=== PATIENT | female | born 1945 | race Caucasian/White ===

== ENCOUNTER 2016-08-20 10:32 | Outpatient (CLI) | payer MEDICARE ==
[2016-08-20 12:36] LABS: #Basophils 0.1 thou/uL (0.0-0.2); #Eosinphils 0.3 thou/uL (0.0-0.7); #Monocytes 0.3 thou/uL (0.11-0.59); %Eosinophils 4.6 % (0.0-10.0); %Lymphocytes 18.3 % (21.0-51.0); %Monocytes 5.4 % (0.0-10.0); %Neutrophils 69.7 % (42.0-75.0); Mean Corpuscular HGB CONC 31.6 g/dL (32.0-36.0); Mean Corpuscular Hemoglobin 29.1 pg (27.0-31.0); Mean Corpuscular Volume 92.2 fl (81.0-99.0); Mean Platelet Volume 7.7 fL (7.4-10.4); Platelet Count 269 thou/uL (130-400); RBC Distribution Width 13.6 % (11.5-14.5); Red Blood Cell (RBC) Count 4.47 mill/uL (4.20-5.40); White Blood Cell (WBC) Count 5.7 thou/uL (4.8-10.8)
[2016-08-20 12:57] LABS: ALT (SGPT) 25 U/L (8-55); AST (SGOT) 25 U/L (5-34); Albumin 4.2 g/dL (3.4-4.8); Alkaline Phosphatase 64 U/L (40-150); Anion Gap 16 mmol/L (10-20); BUN (Urea Nitrogen) 22 mg/dL (9.8-20.1); Bilirubin, Direct 0.3 mg/dL (0.1-0.3); Bilirubin, Total 0.8 mg/dL (0.2-1.2); Calc. Creatinine Clearance 0 mL/min (70-130); Calcium 9.4 mg/dL (7.8-10.44); Carbon Dioxide 26 mmol/L (23-31); Chloride 106 mmol/L (98-107); Cholesterol 153 mg/dl (< 200 Desired); Estimated GFR-MDRD 61; Glucose 102 mg/dL (80-115); HDL Cholesterol 51 mg/dL (>60 Neg Risk); LDL Cholesterol, Calculated 82 mg/dL; Sodium 144 mmol/L (136-145); Triglycerides 100 mg/dL (Less than 150)
== END 2016-08-20 10:33 | disposition home or self-care (01) ==
LOC: NAVSJIPCSP 10:32
PROVIDERS: ATTEND Family Medicine
DX: E78.5 Hyperlipidemia, unspecified (principal); J32.9 Chronic sinusitis, unspecified; I10 Essential (primary) hypertension; Z79.899 Other long term (current) drug therapy
CPT/HCPCS: 36415; 80048; 80061; 80076; 83036; 84443; 85025

== ENCOUNTER 2018-12-02 13:13 | Outpatient (CLI) | payer MEDICARE ==
[2018-12-02 13:36] LABS: #Basophils 0.1 thou/uL (0.0-0.2); #Eosinphils 0.3 thou/uL (0.0-0.7); #Lymphocytes 0.7 thou/uL (1.20-3.40); #Monocytes 0.5 thou/uL (0.11-0.59); #Neutrophils 10.1 thou/uL (1.40-6.50); %Basophils 0.9 % (0.0-1.0); %Eosinophils 2.6 % (0.0-10.0); %Neutrophils 86.5 % (42.0-75.0); Mean Corpuscular HGB CONC 31.2 g/dL (32.0-36.0); Mean Corpuscular Hemoglobin 25.1 pg (27.0-31.0); Mean Corpuscular Volume 80.4 fL (78.0-98.0); Mean Platelet Volume 6.2 fL (7.4-10.4); Platelet Count 454 thou/uL (130-400); RBC Distribution Width 13.5 % (11.5-14.5); Red Blood Cell (RBC) Count 4.38 mill/uL (4.20-5.40); White Blood Cell (WBC) Count 11.7 thou/uL (4.8-10.8)
[2018-12-02 13:38] LABS: Bilirubin Negative (Negative); Blood, Urine Large (Negative); Clarity Slightly Cloudy (Clear); Glucose, Urine (Dipstick) Negative (Negative); Leukocyte Trace (Negative); Nitrite Negative (Negative); Protein, Urine (Dipstick) > or equal to 300 mg/dL (Neg-Trace); Urobilinogen 0.2 mg/dL (Less than 2)
[2018-12-02 13:48] LABS: ALT (SGPT) 14 U/L (8-55); AST (SGOT) 16 U/L (5-34); Albumin 3.5 g/dL (3.4-4.8); Alkaline Phosphatase 87 U/L (40-110); Anion Gap 19 mmol/L (10-20); BUN (Urea Nitrogen) 56 mg/dL (9.8-20.1); Bilirubin, Total 0.6 mg/dL (0.2-1.2); Calc. Creatinine Clearance 0 mL/min (70-130); Calcium 11.4 mg/dL (7.8-10.44); Carbon Dioxide 23 mmol/L (23-31); Chloride 97 mmol/L (98-107); Estimated GFR-MDRD 23; Glucose 166 mg/dL (83-110); Potassium 3.2 mmol/L (3.5-5.1); Protein, Total 6.5 g/dL (6.0-8.3); Sodium 136 mmol/L (136-145)
[2018-12-02 14:06] LABS: Bacteria/HPF 1+ HPF (None Seen)
== END 2018-12-02 13:14 | disposition home or self-care (01) ==
LOC: NAVSJIPCSP 13:13
PROVIDERS: ATTEND Family Medicine
DX: I73.9 Peripheral vascular disease, unspecified (principal); R35.0 Frequency of micturition; G62.9 Polyneuropathy, unspecified; I10 Essential (primary) hypertension; R53.1 Weakness; Z79.899 Other long term (current) drug therapy
CPT/HCPCS: 36415; 80053; 81001; 85025

== ENCOUNTER 2018-12-16 18:47 | Inpatient (IN) | payer MEDICARE ==
[2018-12-16] MEDS ORDERED: Bisacodyl 5 MG TAB PO PRN (19:29)
[2018-12-16] MEDS ORDERED: Ondansetron ODT 4 MG TAB PO PRN (19:35)
[2018-12-16] MEDS ORDERED: Loperamide HCl 2 MG CAP PO PRN (19:35)
[2018-12-16] MEDS: Megestrol Acetate 400 MG/10 ML UDCUP PO SCH (20:13)
[2018-12-16] MEDS: Heparin 5,000 UNITS/ML VIAL SC SCH (20:13)
[2018-12-16] MEDS: Simvastatin 10 MG TAB PO SCH (20:14)
[2018-12-16] MEDS: Mirtazapine 30 MG TAB PO SCH (20:14)
--- NOTE | 2018-12-16 23:22 | HP ---
HISTORY OF PRESENT ILLNESS: Ms. Porras is a very pleasant 73-year-old white female, who over the past few weeks had a significantly mental and physical decline. She was brought to the emergency room, where she was found to be in acute on chronic renal insufficiency along with acute toxic metabolic encephalopathy. She was admitted to the hospital once, treated for several days and now has somewhat improved, but now transferred to [facility] for physical therapy and occupational therapy to increase her strength and stamina. Several medications were changed. The patient was seen by Dr. العراقي/Dr. Hutchinson for her GI symptoms. The patient was seen by Dr. Abdiel Vaz for her acute toxic metabolic encephalopathy. The patient was seen by Dr. Beto Cota for her acute on chronic renal insufficiency. The patient stabilized, now is in [facility] for PT, OT and to hopefully allow her toxic metabolic encephalopathy to clear more. PAST MEDICAL HISTORY: Significant for; 1. Rheumatoid arthritis. 2. Hypertension. 3. Hyperlipidemia. 4. Acute on chronic kidney disease. 5. Vasculitis. 6. Gastric ulcer with GERD. 7. Urinary incontinence. 8. Anemia. 9. Depression. 10. Lumbosacral stenosis. PAST SURGICAL HISTORY: Reveals; 1. In 1980, tubal ligation. 2. In 1987, bilateral carpal tunnel surgery. 3. In 1990, left foot surgery second metatarsal by Dr. Crabtree. 4. In 1999, Dr. Crabtree reoperated on the second metatarsal. 5. In 2004, colonoscopy with polypectomy by Dr. Hutchinson. 6. Back surgery by Dr. Hitchcock in 2004. 7. Right total hip replacement by Dr. Rodrigez in 2005. 8. PICC line in 2015. 9. Cervical neck pain by Dr. Godwin Smith, had laser surgery for scar tissue in 2015. 10. Left lower leg amputation, 12/02/2017. FAMILY HISTORY: Reveals the patient's father at age 78 from prostate cancer. The patient's mother at age 84 from breast cancer and dementia. The patient has a sister with arthritis. The patient's paternal grandmother from atherosclerotic heart disease. The patient's maternal grandmother from colon cancer at young age. SOCIAL HISTORY: Reveals the patient was a smoker, but quit in February 2015. She has a 50+ pack year history of smoking. She presently is retired and lives with her spouse in [place], [place]. She has an occasional alcoholic drink, but rarely now. She has 1 dog. ALLERGIES: SHE HAS NO KNOWN DRUG ALLERGIES. REVIEW OF SYSTEMS: CONSTITUTIONAL: Reveals the patient denies fever, chills, or night sweats. Denies headache, but she does admit to extreme weakness and fatigue. She did hit her head 3 or 4 weeks before she was admitted to the hospital. The patient's family states at that time she started having some mental decline. HEENT: She denies any visual changes or hearing changes. RESPIRATORY: She does admit to rhinorrhea occasionally with some congestion, but no sore throat or hoarseness is noted. The patient is not short of breath, not coughing, has not had a change in her sputum production. CARDIOVASCULAR: The patient has no dyspnea on exertion, chest pain, claudication, or arrhythmias. GI: Reveals the patient has decreased oral intake over the last 2 to 3 weeks. She has not had significant abdominal pain, or dyspepsia. She does admit to some dysphagia at times and does not want to eat and just drinks mostly liquids and Ensure. She has been seen by Dr. Hutchinson and had a scope approximately a week before being admitted to the hospital. She had an EGD, which revealed a small gastric ulcer, was put on PPI b.i.d. : The patient has no significant nocturia, urgency, but she does have incontinence. MUSCULOSKELETAL: The patient has some achiness in all of her muscles, but they are really just very weak. She has difficulty standing or walking and does not care to do so at this time. NEUROLOGIC: She does complain of weakness and has occasional dizziness in the past. She does have a right kcyza-ttk-veqa amputation from vasculitis. PHYSICAL EXAMINATION: GENERAL: This is a well-developed, well-nourished, very pleasant 73-year-old white female, in no apparent distress at this time. HEENT: Normocephalic and nontraumatic cranium. The pupils are equally round and reactive. The extraocular movements are intact. The nose and throat are somewhat dry. NECK: Supple without masses, nodes, or bruits. CHEST: Clear to auscultation. No rales, no rhonchi, no wheezes are heard. HEART: Reveals a regular rate and rhythm without murmurs, gallops, or rubs. ABDOMEN: Soft, nontender without organomegaly. Normal bowel sounds are noted in all 4 quadrants. No masses or distention is noted. : Deferred. EXTREMITIES: Revealed generalized weakness with a left qjiue-rfa-jviy amputation, which is well healed. NEUROLOGIC: The patient is oriented to person, place, but not to time. MUSCULOSKELETAL: The patient has generalized weakness all over, 3/5. The patient has had some recent and remote memory fogginess. ASSESSMENT: 1. Acute encephalopathy, much improved. 2. Acute on chronic kidney disease. 3. Hypertension. 4. Hyperlipidemia. 5. Admission with hypokalemia. 6. 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 7. Chest x-ray, rule out pneumonia, aspiration versus infiltrate versus atelectasis. 8. Recent history of gastric ulcer with gastrointestinal bleed with normocytic anemia. PLAN: 1. The patient has been transferred to [facility] for physical therapy and occupational therapy, and speech therapy. 2. We will continue to treat this patient for her acute toxic encephalopathy. 3. We will continue to follow the patient's blood pressure closely. 4. Continue to follow the patient's renal status and anemia closely. 5. Stress ulcer prophylaxis. 6. Decubitus precautions. 7. Deep venous thrombosis prophylaxis per Primary Service. 8. Physical therapy and occupational therapy. 9. Speech therapy. Job ID: [id number]
[2018-12-17] MEDS: Acetaminophen 325 MG TAB PO PRN ×2 (04:37→17:15)
[2018-12-17 05:53] LABS: #Basophils 0.1 thou/uL (0.0-0.2); #Eosinphils 0.4 thou/uL (0.0-0.7); #Monocytes 0.5 thou/uL (0.11-0.59); #Neutrophils 11.7 thou/uL (1.40-6.50); %Basophils 0.4 % (0.0-1.0); %Eosinophils 2.7 % (0.0-10.0); %Lymphocytes 7.6 % (21.0-51.0); %Monocytes 3.8 % (0.0-10.0); %Neutrophils 85.5 % (42.0-75.0); Hemoglobin 8.4 g/dL (12.0-16.0); Mean Corpuscular Hemoglobin 26.6 pg (27.0-31.0); Mean Corpuscular Volume 80.6 fL (78.0-98.0); Mean Platelet Volume 5.4 fL (7.4-10.4); Platelet Count 341 thou/uL (130-400); RBC Distribution Width 14.8 % (11.5-14.5); Red Blood Cell (RBC) Count 3.14 mill/uL (4.20-5.40); White Blood Cell (WBC) Count 13.7 thou/uL (4.8-10.8)
[2018-12-17 06:16] LABS: ALT (SGPT) 20 U/L (8-55); AST (SGOT) 21 U/L (5-34); Albumin 2.4 g/dL (3.4-4.8); Alkaline Phosphatase 114 U/L (40-110); Anion Gap 13 mmol/L (10-20); BUN (Urea Nitrogen) 36 mg/dL (9.8-20.1); Bilirubin, Total 0.4 mg/dL (0.2-1.2); Calc. Creatinine Clearance 19 mL/min (70-130); Calcium 9.1 mg/dL (7.8-10.44); Carbon Dioxide 26 mmol/L (23-31); Chloride 103 mmol/L (98-107); Estimated GFR-MDRD 18; Glucose 123 mg/dL (83-110); Potassium 4.4 mmol/L (3.5-5.1); Protein, Total 5.4 g/dL (6.0-8.3); Sodium 138 mmol/L (136-145)
[2018-12-17] MEDS: Ferrous Sulfate 325 MG TAB PO SCH ×2 (08:46→17:16)
[2018-12-17] MEDS: Folic Acid 1 MG TAB PO SCH (08:46)
[2018-12-17] MEDS: Megestrol Acetate 400 MG/10 ML UDCUP PO SCH ×2 (08:47→20:45)
[2018-12-17] MEDS: Potassium Chloride 20 MEQ TAB PO SCH ×2 (08:57→17:16)
[2018-12-17] MEDS: Heparin 5,000 UNITS/ML VIAL SC SCH ×2 (08:58→20:45)
[2018-12-17] MEDS ORDERED: (Bisoprolol Fumarate [Zebeta] 10 MG) PO SCH (09:00)
[2018-12-17] MEDS ORDERED: FLU VACC TS2019-20(65YR UP)/PF 180 MCG/0.5 ML SYRINGE IM ONE (09:00)
[2018-12-17] MEDS ORDERED: Prevnar 13-Val Conj/PF 0.5 ML SYRINGE IM ONE (09:00)
[2018-12-17] MEDS: Bisoprolol Fumarate 5 MG TAB PO SCH (10:06)
[2018-12-17 10:24] LABS: Bilirubin Negative (Negative); Blood, Urine Moderate (Negative); Clarity Clear (Clear); Glucose, Urine (Dipstick) Negative (Negative); Leukocyte Negative (Negative); Nitrite Negative (Negative); Protein, Urine (Dipstick) 100 mg/dL (Neg-Trace); Urobilinogen 0.2 mg/dL (Less than 2)
--- NOTE | 2018-12-17 10:27 | PRG ---
DATE OF SERVICE: 12/17/2018 HISTORY: Ms. Porras is a well-developed, well-nourished, very pleasant, 73-year- old white female, who was admitted to [facility] with toxic metabolic encephalopathy. She had an extensive workup, which only revealed acute on chronic renal insufficiency. She had significant decrease in appetite for approximately 3 weeks leading up to this. She is much improved, but she is still only oriented x1 and so she was transferred to inpatient swing bed at [facility] for physical therapy, occupational therapy, and speech therapy. She is also here to see if we get her encephalopathy to continue to clear and to encourage her to drink more liquids and to eat better. The patient was seen by Dr. العراقي/Jasper, Dr. Abdiel Vaz, and Dr. Anthony Cota, all with recommendations. SUBJECTIVE: The patient states she is feeling a bit better today, but she got in late last night and did not want to eat. She does not remember me coming by to see her late last night. She does remember that we talked about her senior hardware design engineer , who also happens to be Dr. Cota from [place]. Her will bring paperwork indicating her diagnosis from him today, which we will review. OBJECTIVE: VITAL SIGNS: Today, reveal blood pressure 156/84, pulse 86 to 91, respirations 18, O2 saturation 93% to 96% on room air, and T-max 99.1. LABORATORY DATA: Today, reveals white count of 13,700 with hemoglobin 8.4 and hematocrit 25.3, which has improved since she did get blood before she left [facility] yesterday. Chemistries today reveal sodium 138, potassium 4.4, chloride 103, carbon dioxide 26 with a BUN of 36 and creatinine 2.63. Sugar this morning is 123. OBJECTIVE: GENERAL: This is a well-developed, well-nourished, slightly overweight white female, oriented to person and place, but not time. HEENT: Reveals normocephalic and nontraumatic cranium. Pupils are equal, round , and reactive. Extraocular movements are intact. Nose and throat are somewhat dry this morning. The patient is encouraged to eat and drink better. NECK: Supple without masses, nodes, or bruits. CHEST: Clear to auscultation. No rales, no rhonchi, no wheezes, and no cough is noted. HEART: Reveals a regular rate and rhythm without murmurs, gallops, or rubs. ABDOMEN: Slightly obese, soft, and nontender without organomegaly. No rebound or guarding is noted. Normal bowel sounds are noted in all 4 quadrants. GENITOURINARY: Exam is deferred. EXTREMITIES: Reveal no clubbing, cyanosis, or edema. Uclpf-wqw-dulv amputation noted on the left. It is well healed. The patient's prosthesis should be coming in within the next allison days. . NEUROLOGIC: The patient is oriented to person and place, but not time today. The patient has generalized weakness all over, it is 3/5. She is a 1-person max assist. She continues to have some recent remote memory fogginess. ASSESSMENT: 1. Acute encephalopathy, slightly improved today. 2. Acute on chronic kidney disease, which is not improving. 3. Hypertension. 4. Hyperlipidemia. 5. Admission for hypokalemia. 6. 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 7. Chest x-ray ruled out pneumonia, aspiration versus infiltrate versus atelectasis. 8. Recent history of gastrointestinal ulcer with minimal bleed. PLAN: 1. The patient is here for occupational therapy, physical therapy, and speech therapy. 2. Continue to treat the patient for acute toxic encephalopathy. 3. Follow the patient's blood pressure closely. 4. Monitor the patient's renal status. Encourage her to eat. 5. Monitor the patient's anemia. 6. Stress ulcer prophylaxis. 7. Decubitus precautions. 8. DVT prophylaxis. 9. Physical therapy and occupational therapy. 10. Speech therapy. Job ID: [id number] [facility]
[2018-12-17 10:30] LABS: Bacteria/HPF None Seen HPF (None Seen); WBC/HPF 0-3 HPF (0-3)
[2018-12-17] MEDS: Simvastatin 10 MG TAB PO SCH (20:45)
[2018-12-17] MEDS: Mirtazapine 30 MG TAB PO SCH (20:45)
[2018-12-18 06:46] LABS: #Basophils 0.2 thou/uL (0.0-0.2); #Eosinphils 0.5 thou/uL (0.0-0.7); #Lymphocytes 0.9 thou/uL (1.20-3.40); #Monocytes 0.7 thou/uL (0.11-0.59); %Basophils 1.1 % (0.0-1.0); %Eosinophils 3.3 % (0.0-10.0); %Lymphocytes 6.4 % (21.0-51.0); %Monocytes 4.6 % (0.0-10.0); %Neutrophils 84.6 % (42.0-75.0); Hemoglobin 8.4 g/dL (12.0-16.0); Mean Corpuscular HGB CONC 32.1 g/dL (32.0-36.0); Mean Corpuscular Volume 81.2 fL (78.0-98.0); Mean Platelet Volume 5.3 fL (7.4-10.4); Platelet Count 361 thou/uL (130-400); RBC Distribution Width 15.3 % (11.5-14.5); Red Blood Cell (RBC) Count 3.23 mill/uL (4.20-5.40); White Blood Cell (WBC) Count 14.1 thou/uL (4.8-10.8)
[2018-12-18 06:58] LABS: Anion Gap 15 mmol/L (10-20); BUN (Urea Nitrogen) 35 mg/dL (9.8-20.1); Calc. Creatinine Clearance 18 mL/min (70-130); Calcium 9.4 mg/dL (7.8-10.44); Carbon Dioxide 20 mmol/L (23-31); Chloride 108 mmol/L (98-107); Estimated GFR-MDRD 16; Glucose 96 mg/dL (83-110); Potassium 5.4 mmol/L (3.5-5.1); Sodium 138 mmol/L (136-145)
[2018-12-18] MEDS: Megestrol Acetate 400 MG/10 ML UDCUP PO SCH ×2 (08:33→21:27)
[2018-12-18] MEDS: Folic Acid 1 MG TAB PO SCH (08:34)
[2018-12-18] MEDS: Ferrous Sulfate 325 MG TAB PO SCH ×2 (08:34→17:01)
[2018-12-18] MEDS: Potassium Chloride 20 MEQ TAB PO SCH ×2 (08:34→17:00)
[2018-12-18] MEDS: Bisoprolol Fumarate 5 MG TAB PO SCH (08:34)
[2018-12-18] MEDS: Heparin 5,000 UNITS/ML VIAL SC SCH ×2 (08:34→21:27)
[2018-12-18] MEDS ORDERED: Amlodipine 5 MG TAB PO SCH (10:15)
[2018-12-18] MEDS ORDERED: Sodium Chloride 0.9% 20 ML ONE (10:32)
[2018-12-18] MEDS: Sodium Chloride 0.9% 1,000 ML IV SCH ×2 (10:36→20:59)
--- NOTE | 2018-12-18 18:34 | PRG ---
DATE OF SERVICE: 12/18/2018 HISTORY: Ms. Porras is a very pleasant 73-year-old white female, presented to [facility] with toxic metabolic encephalopathy and acute on chronic renal insufficiency. Apparently, she has significant decreased appetite for approximately 3 weeks leading up to this. She is not able to eat or drink at all. She was seen by GI, by Neurology, and by Renal consultations. She eventually was stabilized and transferred to inpatient rehab for physical therapy and occupational therapy, and speech therapy. She also has continuing chronic renal insufficiency, unknown etiology. SUBJECTIVE: The patient states she feels much better, and she is much more awake and alert and oriented x2 today. She was talking to several of her friends and her sitter today. She states she is trying to eat better, but I reminded her that her creatinine went from 2.6 to 2.89 today and therefore, we would start her on some IV normal saline along with potassium pill. I encouraged her to try to eat better, so that we do not have to leave that IV in very long. She said "she will try." She was also hypertensive, so we also start her on amlodipine 5 mg q.a.m. and elected to keep her off the lisinopril at this time. OBJECTIVE: VITAL SIGNS: Reveal blood pressure this morning was 179/96, pulse was 87, respirations 18, O2 saturation was 95% on room air, and T-max was 98.2. GENERAL: This is a well-developed, well-nourished, slightly obese white female, in no apparent distress at this time. HEENT: Reveals normocephalic and nontraumatic cranium. Pupils are equal, round, and reactive. Extraocular movements are intact. Nose and throat are slightly dry. NECK: Supple without masses, nodes, or bruits. CHEST: Clear to auscultation. No rales, rhonchi, or wheezes are heard. HEART: Reveals a regular rate and rhythm without murmurs, gallops, or rubs. ABDOMEN: Soft, nontender without organomegaly. Normal bowel sounds are noted. ABDOMEN: Slightly protuberant. GENITOURINARY: Exam is deferred. EXTREMITIES: Reveal no clubbing, cyanosis, or edema. NEUROLOGIC: The patient is oriented to person and place today. She continues to have some generalized weakness. She is still one-person max assist. I did get a call from the physicians at [facility] where she was, and she had an ANCA score that was 180. She also had a positive rheumatoid factor. I did recommend that she return to see her intake assessor for further treatment of her rheumatoid arthritis. ASSESSMENT: 1. Acute encephalopathy, continued to slightly improve. 2. Acute on chronic kidney disease, which is worsened from creatinine of 2.6 to 2.89. 3. Hypertension. 4. Hyperlipidemia. 5. History of rheumatoid vasculitis in the past. 6. Rheumatoid arthritis. 7. Recent gastrointestinal ulcer. Scoped by Dr. Hutchinson. 8. Very poor appetite. 9. Generalized weakness. PLAN: 1. Continue to monitor the patient's acute toxic encephalopathy, which is slowly improving. 2. We will start the patient on amlodipine 5 mg for better blood pressure control. 3. Continue to monitor the patient's renal status. 4. Repeat labs tomorrow. 5. Encourage the patient to eat and drink more. 6. Monitor the patient's anemia. 7. Stress ulcer prophylaxis. 8. Decubitus precautions. 9. DVT prophylaxis. 10. Continue physical therapy and occupational therapy. 11. Speech therapy. Job ID: [id number]
[2018-12-18] MEDS: Mirtazapine 30 MG TAB PO SCH (21:27)
[2018-12-18] MEDS: Simvastatin 10 MG TAB PO SCH (21:27)
[2018-12-19 07:39] LABS: Anion Gap 14 mmol/L (10-20); BUN (Urea Nitrogen) 35 mg/dL (9.8-20.1); Calc. Creatinine Clearance 18 mL/min (70-130); Calcium 9.1 mg/dL (7.8-10.44); Carbon Dioxide 16 mmol/L (23-31); Chloride 112 mmol/L (98-107); Estimated GFR-MDRD 16; Glucose 93 mg/dL (83-110); Potassium 5.4 mmol/L (3.5-5.1); Sodium 137 mmol/L (136-145)
[2018-12-19] MEDS: Ferrous Sulfate 325 MG TAB PO SCH ×2 (08:53→18:06)
[2018-12-19] MEDS: Potassium Chloride 20 MEQ TAB PO SCH ×2 (08:54→18:06)
[2018-12-19] MEDS: Folic Acid 1 MG TAB PO SCH (08:54)
[2018-12-19] MEDS: Amlodipine 5 MG TAB PO SCH (08:55)
[2018-12-19] MEDS: Bisoprolol Fumarate 5 MG TAB PO SCH (08:55)
[2018-12-19] MEDS: Megestrol Acetate 400 MG/10 ML UDCUP PO SCH ×2 (08:55→21:22)
[2018-12-19] MEDS: Heparin 5,000 UNITS/ML VIAL SC SCH ×2 (08:56→21:21)
[2018-12-19] MEDS: Sodium Chloride 0.9% 1,000 ML IV SCH ×3 (13:56→23:02)
[2018-12-19] MEDS: Simvastatin 10 MG TAB PO SCH (21:22)
[2018-12-19] MEDS: Mirtazapine 30 MG TAB PO SCH (21:22)
--- NOTE | 2018-12-19 23:58 | PRG ---
DATE OF SERVICE: 12/19/2018 SUBJECTIVE: Ms. Porras is a very pleasant 73-year-old white female, who presented to [facility] with toxic metabolic encephalopathy and acute on chronic renal insufficiency. She had significant decrease in appetite for approximately 3 weeks prior to this. Unfortunately, she had a fall, which everybody thought caused her to not want to eat. She was evaluated by Neurology and not found to have any subdural hematomas, etc. She was seen by Renal consultation with Dr. Cota, who placed her on bicarb drip. She was also seen by Dr. العراقي for her GI problems and found to have no significant problems there. She eventually was stabilized and transferred to [facility] for physical therapy and occupational therapy to increase her strength and stamina. When the patient came here, her creatinine was 2.6. She was encouraged to drink, but that did not happen and so she increased her creatinine to 2.8. I did plug in an IV on her and gave her some normal saline, but her IV came out sometimes early this morning. Her creatinine was 5.87 this morning. LABORATORY DATA: Laboratories this morning reveal white count still slightly elevated at 14,000, hemoglobin 8.4, hematocrit 26.2, and platelet count 361. Her sodium is 137, potassium still at 5.4, chloride 112, carbon dioxide 16 with a BUN of 35, creatinine 2.87 and yesterday it was 2.89. GFR was 16. Glucose is noted to be at 93. PHYSICAL EXAMINATION: VITAL SIGNS: Today reveal blood pressure 168/97, pulse 75 to 87, respirations 18, O2 saturation 92% on room air, and T-max 98.5. GENERAL: This is a well-developed, well-nourished, very pleasant, 73-year-old white female, in no apparent distress at this time. HEENT: Reveals normocephalic and nontraumatic cranium. The pupils are equally round and reactive. The extraocular movements are intact. The nose and throat are dry. NECK: Supple without masses, nodes, or bruits. CHEST: Reveals shallow breath sounds, but clear. No rales, no rhonchi, no wheezes are heard. HEART: Reveals a regular rate and rhythm without murmurs, gallops, or rubs. ABDOMEN: Soft, nontender without organomegaly. Normal bowel sounds are noted in all 4 quadrants. : Deferred. EXTREMITIES: Reveal no clubbing, cyanosis, or edema. NEUROLOGICAL: The patient is oriented to person and place, but not time. She has several visitors. ASSESSMENT: 1. Acute encephalopathy, slowly improving. 2. Acute on chronic kidney disease. 3. Poor appetite to the point that the patient is requiring an IV again. 4. Hyperlipidemia. 5. Acute on chronic renal insufficiency. 6. Hyperkalemia. 7. 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 8. Chest x-ray ruled out pneumonia, aspiration versus infiltrate versus atelectasis. 9. Recent history of gastric ulcer as scoped by Dr. Hutchinson. 10. Generalized weakness. 11. Right nrtjd-tbb-ibtz amputation secondary to vasculitis in the distant past. We are awaiting on her prosthesis to come. PLAN: 1. We will continue her IV fluids at this time. 2. Repeat labs tomorrow morning. 3. Continue to monitor the patient's blood pressure closely and might need to address that. 4. Monitor the patient's anemia. 5. Stress ulcer prophylaxis. 6. Decubitus precautions. 7. DVT prophylaxis. 8. Continue physical therapy and occupational therapy. 9. Speech Therapy at this time recommends that she remain on pureed diet. 10. We will get an MBS ordered for Saturday. 11. Encourage the patient to stay out of bed and drink liquids and eat the best she can. 12. Continue supplemental hydration at this time. 13. Dr. Juan Carlos Seymour will be following this patient over the weekend. Job ID: [id number]
[2018-12-20] MEDS: Sodium Chloride 0.9% 1,000 ML IV SCH ×3 (05:14→18:16)
[2018-12-20 06:07] LABS: #Basophils 0.1 thou/uL (0.0-0.2); #Eosinphils 0.5 thou/uL (0.0-0.7); #Lymphocytes 1.1 thou/uL (1.20-3.40); #Monocytes 0.6 thou/uL (0.11-0.59); #Neutrophils 11.2 thou/uL (1.40-6.50); %Basophils 0.6 % (0.0-1.0); %Eosinophils 3.4 % (0.0-10.0); %Lymphocytes 8.2 % (21.0-51.0); %Monocytes 4.1 % (0.0-10.0); %Neutrophils 83.7 % (42.0-75.0); Hemoglobin 7.7 g/dL (12.0-16.0); Mean Corpuscular HGB CONC 31.1 g/dL (32.0-36.0); Mean Corpuscular Hemoglobin 25.8 pg (27.0-31.0); Mean Corpuscular Volume 82.7 fL (78.0-98.0); Mean Platelet Volume 5.6 fL (7.4-10.4); Platelet Count 399 thou/uL (130-400); RBC Distribution Width 16.6 % (11.5-14.5); Red Blood Cell (RBC) Count 2.99 mill/uL (4.20-5.40); White Blood Cell (WBC) Count 13.4 thou/uL (4.8-10.8)
[2018-12-20 06:18] LABS: ALT (SGPT) 50 U/L (8-55); AST (SGOT) 52 U/L (5-34); Albumin 2.6 g/dL (3.4-4.8); Alkaline Phosphatase 189 U/L (40-110); Anion Gap 15 mmol/L (10-20); BUN (Urea Nitrogen) 34 mg/dL (9.8-20.1); Bilirubin, Total 0.3 mg/dL (0.2-1.2); Calc. Creatinine Clearance 15 mL/min (70-130); Calcium 9.4 mg/dL (7.8-10.44); Carbon Dioxide 14 mmol/L (23-31); Chloride 114 mmol/L (98-107); Estimated GFR-MDRD 13; Globulin 3.3 g/dL (2.4-3.5); Glucose 125 mg/dL (83-110); Potassium 5.6 mmol/L (3.5-5.1); Protein, Total 5.9 g/dL (6.0-8.3); Sodium 137 mmol/L (136-145)
[2018-12-20] MEDS: Potassium Chloride 20 MEQ TAB PO SCH ×3 (08:36→18:18)
[2018-12-20] MEDS: Ferrous Sulfate 325 MG TAB PO SCH ×2 (08:37→18:14)
[2018-12-20] MEDS: Acetaminophen 325 MG TAB PO PRN (08:42)
[2018-12-20] MEDS: Folic Acid 1 MG TAB PO SCH (09:42)
[2018-12-20] MEDS: Bisoprolol Fumarate 5 MG TAB PO SCH (09:42)
[2018-12-20] MEDS: Megestrol Acetate 400 MG/10 ML UDCUP PO SCH ×2 (09:42→21:03)
[2018-12-20] MEDS: Heparin 5,000 UNITS/ML VIAL SC SCH ×2 (09:43→21:03)
[2018-12-20] MEDS: Amlodipine 5 MG TAB PO SCH (09:43)
[2018-12-20] MEDS ORDERED: Amlodipine 5 MG TAB PO SCH (18:15)
[2018-12-20] MEDS: Mirtazapine 30 MG TAB PO SCH (21:03)
[2018-12-20] MEDS: Simvastatin 10 MG TAB PO SCH (21:03)
[2018-12-21] MEDS: Sodium Chloride 0.9% 1,000 ML IV SCH ×2 (02:15→10:02)
[2018-12-21 06:08] LABS: Anion Gap 14 mmol/L (10-20); BUN (Urea Nitrogen) 32 mg/dL (9.8-20.1); Calc. Creatinine Clearance 17 mL/min (70-130); Calcium 9.6 mg/dL (7.8-10.44); Carbon Dioxide 13 mmol/L (23-31); Chloride 117 mmol/L (98-107); Estimated GFR-MDRD 15; Glucose 115 mg/dL (83-110); Potassium 4.9 mmol/L (3.5-5.1); Sodium 139 mmol/L (136-145)
[2018-12-21] MEDS: Bisoprolol Fumarate 5 MG TAB PO SCH (09:58)
[2018-12-21] MEDS: Folic Acid 1 MG TAB PO SCH (09:58)
[2018-12-21] MEDS: Amlodipine 5 MG TAB PO SCH (09:59)
[2018-12-21] MEDS: Heparin 5,000 UNITS/ML VIAL SC SCH ×2 (10:00→20:51)
[2018-12-21] MEDS: Ferrous Sulfate 325 MG TAB PO SCH ×2 (10:00→17:52)
[2018-12-21] MEDS: Megestrol Acetate 400 MG/10 ML UDCUP PO SCH (10:01)
[2018-12-21 14:36] VITALS: BMI 25.3
--- NOTE | 2018-12-21 14:41 | RAD ---
RADIOGRAPH CHEST 1 VIEW: DATE: 12/21/2018 TIME: 1:55 PM HISTORY: 73-year-old female with dyspnea. COMPARISON: 12/11/2018 FINDINGS: New large region of consolidation at right midlung zone involving anterior segment of right upper lob e, extending from right hilum almost to lateral pleural surface. In addition, there is worsening haziness of right medial lung base. Cardiomegaly. Retrocardiac portio n of left lower lobe difficult to evaluate because of the cardiomegaly. Cannot rule out left lower lobe pneumonia. Left perihilar increased attenuation. No pneumothorax. IMPRESSION: 1) right upper lobe pneumonia. 2) questionable additional infiltrates at right lower lobe, left lower lobe, and left perihilar regio n. 3) cardiomegaly. Cannot rule out possibility of mild congestive heart failure.
[2018-12-21] MEDS ORDERED: Sodium Chloride 0.9% 1,000 ML IV SCH (16:15)
[2018-12-21 19:51] LABS: #Basophils 0.1 thou/uL (0.0-0.2); #Eosinphils 0.2 thou/uL (0.0-0.7); #Lymphocytes 1.1 thou/uL (1.20-3.40); #Neutrophils 14.5 thou/uL (1.40-6.50); %Basophils 0.7 % (0.0-1.0); %Eosinophils 1.3 % (0.0-10.0); %Lymphocytes 6.3 % (21.0-51.0); %Monocytes 5.6 % (0.0-10.0); Hemoglobin 8.8 g/dL (12.0-16.0); Mean Corpuscular Hemoglobin 25.7 pg (27.0-31.0); Mean Platelet Volume 5.3 fL (7.4-10.4); Platelet Count 472 thou/uL (130-400); RBC Distribution Width 17.3 % (11.5-14.5); Red Blood Cell (RBC) Count 3.42 mill/uL (4.20-5.40); White Blood Cell (WBC) Count 16.9 thou/uL (4.8-10.8)
[2018-12-21 20:04] LABS: Anion Gap 16 mmol/L (10-20); BUN (Urea Nitrogen) 32 mg/dL (9.8-20.1); Calc. Creatinine Clearance 17 mL/min (70-130); Calcium 10.1 mg/dL (7.8-10.44); Carbon Dioxide 13 mmol/L (23-31); Chloride 115 mmol/L (98-107); Estimated GFR-MDRD 16; Glucose 96 mg/dL (83-110); Potassium 4.9 mmol/L (3.5-5.1); Sodium 139 mmol/L (136-145)
[2018-12-21 20:26] VITALS: BP 146/80; TEMP 99.9
--- NOTE | 2018-12-21 21:00 | PRG ---
DATE OF SERVICE: 12/20/2018 SUBJECTIVE: The patient feels weak and has not been able to eat very well, states that she will eat a few bites and then she has to spit the food up. She is not tolerating liquids very well either. She is not complaining of any shortness of breath or chest pain, just very weak. OBJECTIVE: VITAL SIGNS: Her temperature is 97.1 pulse 89, respirations 18, O2 sats 95% on room air, and blood pressure is 186/99. LABORATORY DATA: Sodium 137, potassium 5.6, chloride 114, bicarb 14, BUN is 34, creatinine 3.37, increased from 2.87 the previous day. Liver functions show albumin 2.6, serum total protein 5.9, alkaline phosphatase 189. White count is 13,400, hematocrit 24, and hemoglobin 7.7. The patient has acute on chronic renal insufficiency, which improved with IV fluids previously, but now has worsened again. She has not been eating well. She has remained awake and alert with no complaints of vomiting, but states she just spits up her food. She has had no diarrhea and no dysuria. shows her appears to be having acute on chronic renal failure with creatinine increasing to 3.37 from 2.87, potassium increased to 5.6. White count, however, improved slightly to 13.4, hemoglobin 7.7, and hematocrit 24. ASSESSMENT: 1. Acute on chronic renal insufficiency, worsening. 2. Persistent dysphagia, vomiting, spitting up food. 3. Metabolic encephalopathy, appears to be resolved. 4. Right nmycx-huu-fmzs amputation secondary to vasculitis. PLAN: Increase the IV fluids of normal saline at 125 mL an hour. Repeat basic metabolic profile in the a.m. Obtain BNP in the a.m. Continue Megace and stress the patient need to increase her appetite and increase strength. Prognosis is somewhat guarded because of refusal to eat despite negative GI evaluation. Job ID: [id number]
--- NOTE | 2018-12-21 23:09 | DIS ---
DATE OF ADMISSION: 12/16/2018 DATE OF DISCHARGE: 12/21/2018 FINAL DIAGNOSES: 1. Acute right upper lobe aspiration pneumonia. 2. Rheumatoid arthritis. 3. Hypertension. 4. Acute on chronic kidney disease. 5. Gastric ulcer. 6. Depression. 7. Vasculitis. 8. Lumbosacral stenosis. HOSPITAL COURSE: The patient is a very pleasant 73-year-old white female, patient of Dr. Alegre, who over the last month has had a significant mental and physical decline, was seen at [facility] for acute on chronic renal insufficiency with negative neurologic evaluation and with improvement in renal function with hydration and with only an NSAID-related gastric ulcers, but with no further evaluation done because of her renal function prohibiting a CT with dye, felt that she possibly had a flare in her vasculitis and is admitted back to [place] for fluids therapy. When admitted here, she was still eating very poorly. Initial vital signs showed her to have temperature 98.3, pulse 85, respirations 16, O2 saturations 91% on room air, blood pressure is 140/66. White count was 12,600, hematocrit 23, hemoglobin 7.7. Sodium was 135, potassium 3.8, chloride 98, bicarb 26, BUN 33, creatinine 2.31. Urinalysis showed only 7 to 10 red cells, which has improved from the 50 that she had previously. She was showing a flare of her vasculitis with a greater than 100 antiproteinase 3 and elevated ANCA pattern. She is therefore felt possibly improved with IV fluids, but initially her first several days, blood pressure stabilized, but she continued to have problems with inadequate eating and felt that she was spitting up more and vomiting more than she was eating. Her creatinine increased to 3.37 and has felt that she required IV fluids and was started on IV normal saline at 125 an hour. She subsequently did not improve, but the next day became more congested, felt she possibly had fluid overload, but x-ray showed she had a right upper lobe pneumonia consistent with aspiration. Her white count increased to 16,900, hematocrit 28, hemoglobin 8, sodium was 139, potassium 4.9, chloride 115, bicarb is 13, BUN is 32, creatinine 2.93 after the IV fluids. Lactic acid was normal at 1.4. Coincidentally with this diagnosis, she lost her IV and they were unable to replace it. Blood cultures were not done and she was not able to give any intravenous antibiotics. Therefore, it is felt that she emergently needed to be transferred to [facility] Intensive Care Unit. Conversation and referral was made with Dr. Neo Flannery, who accepted the patient and she will be emergently transferred to [facility] for intensive care. On discharge, her temperature 99.9, pulse 101, respirations 24, O2 saturations 91% on room air, blood pressure 146/80. Family is in the room and advised them of her transfer. The patient is awake and alert and understands. Job ID: [id number]
== END 2018-12-21 21:20 | disposition short-term general hospital (02) | DRG 91 ==
LOC: NAV ACUTE 18:47
PROVIDERS: ADMIT Family Medicine; ATTEND Family Medicine
DX: G92 Toxic encephalopathy (principal); J69.0 Pneumonitis due to inhalation of food and vomit; N17.9 Acute kidney failure, unspecified; R53.1 Weakness; I10 Essential (primary) hypertension; E78.5 Hyperlipidemia, unspecified; N18.9 Chronic kidney disease, unspecified; D64.9 Anemia, unspecified; F32.9 Major depressive disorder, single episode, unspecified; Z96.641 Presence of right artificial hip joint; E87.6 Hypokalemia; R13.19 Other dysphagia; E87.5 Hyperkalemia; M06.9 Rheumatoid arthritis, unspecified; Z89.512 Acquired absence of left leg below knee; Z98.51 Tubal ligation status; Z87.891 Personal history of nicotine dependence; K25.9 Gastric ulcer, unspecified as acute or chronic, without hemorrhage or perforation; I77.6 Arteritis, unspecified; M48.07 Spinal stenosis, lumbosacral region
CPT/HCPCS: 36415; 71045; 80048; 80053; 81001; 83605; 85025; J1644; J7050